=== PATIENT | male | born 1960 | race Caucasian/White ===

== ENCOUNTER 2018-08-26 10:35 | Emergency (ER) | payer BC, OTHER ==
[~2018-08-26] VITALS: Ht 175.3 cm; Wt 108.2 kg
[2018-08-26 11:47] LABS: BASOPHILS # (AUTO) 0.05 x10^3/uL (0-0.1); BASOPHILS % (AUTO) 1 % (0-1); EOSINOPHILS # (AUTO) 0.02 x10^3/uL (0-0.4); EOSINOPHILS % (AUTO) 0 % (1-7); LYMPHOCYTES # (AUTO) 0.57 x10^3/uL (1-3.4); LYMPHOCYTES % (AUTO) 7 % (22-44); MD NO; MEAN CORPUSCULAR HEMOGLOBIN 23.1 pg (27.5-34.5); MEAN CORPUSCULAR HGB CONC 31.7 g/dL (33.2-36.2); MEAN PLATELET VOLUME 9.9 fL (7.4-10.4); MONOCYTES # (AUTO) 0.58 x10^3/uL (0.2-0.8); MONOCYTES % (AUTO) 7 % (2-9); NEUTROPHILS # (AUTO) 7.49 x10^3/uL (1.8-6.8); NEUTROPHILS % (AUTO) 86 % (42-75); PLATELET COUNT 316 x10^3/uL (130-400); RED BLOOD COUNT 5.65 x10^6/uL (4.38-5.82); RED CELL DISTRIBUTION WIDTH 18.8 % (9.4-14.8)
[2018-08-26 11:58] LABS: MICROSCOPIC NOT IND
[2018-08-26] MEDS ORDERED: ATOR40TA PO (12:00)
[2018-08-26] MEDS ORDERED: CARV-39 PO (12:00)
[2018-08-26] MEDS ORDERED: RANI150C PO (12:00)
[2018-08-26] MEDS ORDERED: BENA40TA3 PO (12:00)
[2018-08-26] MEDS ORDERED: ASPI-496 PO (12:00)
[2018-08-26] MEDS ORDERED: LEVO25TA4 PO (12:00)
[2018-08-26] MEDS ORDERED: HYDR25TA6 PO (12:00)
[2018-08-26 12:03] LABS: ALBUMIN 4.4 g/dL (3.4-5.0); ANION GAP 11 mmol/L (5-15); CALCIUM 9.8 mg/dL (8.5-10.1); CHLORIDE 103 mmol/L (98-107)
[2018-08-26 12:08] LABS: ALANINE AMINOTRANSFERASE 29 U/L (12-78); ALKALINE PHOSPHATASE 60 U/L (45-117); BILIRUBIN,TOTAL 0.7 mg/dL (0.2-1.0); CREATININE 1.09 mg/dL (0.7-1.3); TOTAL PROTEIN 7.9 g/dL (6.4-8.2)
[2018-08-26 12:08] LABS: CULTURE INDICATED? NO
[2018-08-26 12:13] LABS: TROPONIN I < 0.015 ng/mL (0.000-0.045)
[2018-08-26 12:39] LABS: % IRON SATURATION 5 % (20-55); IRON LEVEL 27 mcg/dL (65-175); TOTAL IRON BINDING CAPACITY 516 mcg/dL (250-450)
[2018-08-26 13:07] VITALS: BP 146/87
== END 2018-08-26 13:25 | disposition home or self-care (01) ==
LOC: ED 13:19
DX: N28.89 Other specified disorders of kidney and ureter (principal); D50.9 Iron deficiency anemia, unspecified; M54.9 Dorsalgia, unspecified; I10 Essential (primary) hypertension; E78.5 Hyperlipidemia, unspecified
CPT/HCPCS: 36415; 76770; 80053; 81003; 83540; 83550; 83690; 84484; 85025; 93005; 99284

== ENCOUNTER 2018-10-04 08:02 | Day surgery (SDC) | payer OTHER ==
[~2018-10-04 08:02] MED LIST: ASPI-496 PO; ATOR40TA PO; BENA40TA3 PO; CARV-39 PO; HYDR25TA6 PO; LEVO25TA4 PO; RANI150C PO
== END 2018-10-04 08:03 | disposition home or self-care (01) ==
LOC: RAD 08:02
PROVIDERS: ATTEND Urology
DX: Z02.9 Encounter for administrative examinations, unspecified (principal)

== ENCOUNTER 2018-10-14 10:59 | Day surgery (SDC) | payer OTHER ==
[~2018-10-14] VITALS: Ht 175.3 cm; Wt 110.0 kg
[~2018-10-14 10:59] MED LIST changes: +ACETAMINOPHEN 325 MG TABLET PO PRN; +ALBUTEROL SULFATE 2.5 MG/3 ML NPPB PRN; +DEXAMETHASONE 4 MG/ML, 1ML IV PRN; +DIPHENHYDRAMINE 50 MG/ML, 1ML IVPush PRN; +EPHEDRINE 50 MG/ML, 1ML IM PRN; +FENTANYL PF 100 MCG/2ML IV PRN; +HYDROmorphone 2 MG/ML, 1ML IVPush PRN; +LABETALOL 5MG/ML, 20ML IV PRN; +LORazepam 2 MG/ML, 1ML IVPush PRN; +MEPERIDINE/PF 25MG/0.5ML IVPush PRN; +METOCLOPRAMIDE 5 MG/ML, 2ML IV PRN; +METOPROLOL 1 MG/ML, 5ML IV PRN; +MIDAZOLAM 1 MG/ML, 2ML IV PRN; +ONDANSETRON 2MG/ML, 2ML IV PRN; +OXYcodone 5 MG/5 ML ORAL.SOL UDC PO PRN; +PLEASE ENTER HEIGHT AND WEIGHT MC SCH
[2018-10-14] MEDS ORDERED: SODIUM CHLORIDE 0.9% 1,000 ML IV SCH (11:49)
[2018-10-14] MEDS ORDERED: CEFAZOLIN PMX 1GM/50ML 50 ML IV ONE (12:00)
[2018-10-14] MEDS ORDERED: LIDOCAINE-MPF 1%, 5ML ONE (12:21)
[2018-10-14 12:23] VITALS: BP 153/92
[2018-10-14 12:27] LABS: BASOPHILS # (AUTO) 0.04 x10^3/uL (0-0.1); BASOPHILS % (AUTO) 0 % (0-1); EOSINOPHILS # (AUTO) 0.05 x10^3/uL (0-0.4); EOSINOPHILS % (AUTO) 1 % (1-7); LYMPHOCYTES # (AUTO) 0.71 x10^3/uL (1-3.4); LYMPHOCYTES % (AUTO) 9 % (22-44); MD NO; MEAN CORPUSCULAR HEMOGLOBIN 23.4 pg (27.5-34.5); MEAN CORPUSCULAR HGB CONC 32.1 g/dL (33.2-36.2); MEAN CORPUSCULAR VOLUME 72.9 fL (81-97); MONOCYTES # (AUTO) 0.49 x10^3/uL (0.2-0.8); MONOCYTES % (AUTO) 6 % (2-9); NEUTROPHILS # (AUTO) 6.81 x10^3/uL (1.8-6.8); NEUTROPHILS % (AUTO) 84 % (42-75); PLATELET COUNT 313 x10^3/uL (130-400); RED BLOOD COUNT 5.66 x10^6/uL (4.38-5.82); RED CELL DISTRIBUTION WIDTH 18.4 % (9.4-14.8)
[2018-10-14 12:38] LABS: INTERNATIONAL NORMALIZED RATIO 0.96 (0.93-1.1); PROTHROMBIN TIME 10.2 Seconds (9.6-11.5)
[2018-10-14 12:41] LABS: ALBUMIN 4.4 g/dL (3.4-5.0); ANION GAP 9 mmol/L (5-15); CALCIUM 9.5 mg/dL (8.5-10.1); CHLORIDE 107 mmol/L (98-107)
[2018-10-14 12:44] LABS: ALANINE AMINOTRANSFERASE 44 U/L (12-78); ALKALINE PHOSPHATASE 60 U/L (45-117); BILIRUBIN,TOTAL 0.6 mg/dL (0.2-1.0); CREATININE 1.01 mg/dL (0.7-1.3); TOTAL PROTEIN 7.9 g/dL (6.4-8.2)
[2018-10-14] MEDS ORDERED: FENTANYL PF 250 MCG/5ML ONE (12:53)
[2018-10-14] MEDS ORDERED: MIDAZOLAM 1 MG/ML, 2ML ONE (12:53)
[2018-10-14] MEDS ORDERED: PROPOFOL 10 MG/ML, 20ML ONE (12:53)
[2018-10-14] MEDS ORDERED: ROCURONIUM 10MG/ML,5ML ONE (12:53)
[2018-10-14] MEDS ORDERED: GLYCOPYRROLATE 0.2MG/1ML, 5ML ONE (12:53)
[2018-10-14] MEDS ORDERED: DEXAMETHASONE 4 MG/ML, 1ML ONE (12:53)
[2018-10-14] MEDS ORDERED: METOCLOPRAMIDE 5 MG/ML, 2ML ONE (12:53)
== END 2018-10-14 17:40 | disposition home or self-care (01) ==
LOC: OUT 10:59 → EDSTATUS 13:00 → OUT 17:40
PROVIDERS: ATTEND Urology
DX: C64.2 Malignant neoplasm of left kidney, except renal pelvis (principal); I25.2 Old myocardial infarction; Z72.89 Other problems related to lifestyle; Z87.891 Personal history of nicotine dependence
CPT/HCPCS: 36415; 50200; 50593; 77013; 80053; 85025; 85610; 88305; C2618; J0690; J1100; J2250; J2704; J2765; J3010; J3490; J7030

== ENCOUNTER → 2018-12-30 | Outpatient (CLI) | payer OTHER ==
[~2018-12-30] MED LIST changes: -ACETAMINOPHEN 325 MG TABLET PO PRN; -ALBUTEROL SULFATE 2.5 MG/3 ML NPPB PRN; -DEXAMETHASONE 4 MG/ML, 1ML IV PRN; -DIPHENHYDRAMINE 50 MG/ML, 1ML IVPush PRN; -EPHEDRINE 50 MG/ML, 1ML IM PRN; -FENTANYL PF 100 MCG/2ML IV PRN; -HYDROmorphone 2 MG/ML, 1ML IVPush PRN; -LABETALOL 5MG/ML, 20ML IV PRN; -LORazepam 2 MG/ML, 1ML IVPush PRN; -MEPERIDINE/PF 25MG/0.5ML IVPush PRN; -METOCLOPRAMIDE 5 MG/ML, 2ML IV PRN; -METOPROLOL 1 MG/ML, 5ML IV PRN; -MIDAZOLAM 1 MG/ML, 2ML IV PRN; -ONDANSETRON 2MG/ML, 2ML IV PRN; -OXYcodone 5 MG/5 ML ORAL.SOL UDC PO PRN; -PLEASE ENTER HEIGHT AND WEIGHT MC SCH
== END | disposition home or self-care (01) ==
LOC: CFH 11:10
PROVIDERS: ATTEND Urology
DX: C64.9 Malignant neoplasm of unspecified kidney, except renal pelvis (principal)
CPT/HCPCS: 76770

== ENCOUNTER 2019-04-23 09:01 | Outpatient (CLI) | payer OTHER | END 2019-04-23 23:59 | disposition home or self-care (01) | LOC: RAD 09:01 | PROVIDERS: ATTEND Urology | DX: N28.1 Cyst of kidney, acquired (principal); Z98.890 Other specified postprocedural states | CPT/HCPCS: 74183; A9585 ==